=== PATIENT | male | born 1975 | race Two or more races ===

== ENCOUNTER 2024-03-06 18:17 | Inpatient (IN) | payer OTHER ==
[~2024-03-06] VITALS: Ht 177.8 cm; Wt 112.0 kg
[2024-03-06] MEDS ORDERED: SODIUM CHLORIDE 0.9% 100 ML ONE (18:30)
[2024-03-06] MEDS ORDERED: IOHEXOL 350 MG/ML 100 ML VIAL ONE (18:30)
[2024-03-06] MEDS: LABETALOL HCL 5 MG/ML 20 ML VIAL IVP ONE ×3 (18:32→19:33)
[2024-03-06 18:39] LABS: BASOPHILS % (AUTO) 0.5 % (0.0-2.0); EOSINOPHILS % (AUTO) 0.9 % (1.0-6.0); HEMATOCRIT 45.5 % (41-53); HEMOGLOBIN 15.8 g/dL (13.5-17.5); LYMPHOCYTES % (AUTO) 18.9 % (22.0-44.0); MEAN CORPUSCULAR HEMOGLOBIN 29.6 pg (26.0-34.0); MEAN CORPUSCULAR HGB CONC 34.8 G/dL (31.0-37.0); MEAN CORPUSCULAR VOLUME 85 fL (80-100); MONOCYTES % (AUTO) 8.8 % (2.0-9.0); NEUTROPHILS # (AUTO) 7.7 K/uL (1.8-7.7); NEUTROPHILS % (AUTO) 70.9 % (40.0-70.0); PLATELET COUNT (AUTO) 251 K/uL (150-450); RED BLOOD CELL COUNT(AUTO) 5.34 MIL/uL (4.50-5.90); RED CELL DISTRIBUTION WIDTH 13.9 % (11.5-14.5); WHITE BLOOD COUNT (AUTO) 10.9 K/uL (4.5-11.0)
[2024-03-06 18:49] LABS: ANION GAP 11 mmol/L (8-16); CALCIUM, TOTAL 9.7 mg/dL (8.8-10.5); CARBON DIOXIDE 27 mmol/L (22-29); CHLORIDE 102 mmol/L (98-107); GLOMERULAR FILTR. RATE CALC > 60 mL/min (>60); GLUCOSE,RANDOM 133 mg/dL (70-110); POTASSIUM 3.4 mmol/L (3.5-5.1); SODIUM SERUM 140 mmol/L (136-145); UREA NITROGEN, BLOOD 11 mg/dL (7-18)
[2024-03-06] MEDS: ALTEPLASE PER STROKE PROTOCOL CLINICAL ONE (18:53)
[2024-03-06 18:55] LABS: ALANINE AMINOTRANSFERASE 29 U/L (12-78); ALBUMIN 3.8 g/dL (3.4-5.0); ALKALINE PHOSPHATASE 117 U/L (46-116); ASPARTATE AMINOTRANSFERASE 18 U/L (15-37); BILIRUBIN,TOTAL 0.8 mg/dL (0.1-1.0); TOTAL PROTEIN, SERUM 8.2 g/dL (6.4-8.2)
[2024-03-06 18:57] LABS: TROPONIN I-HIGH SENSITIVITY 27 ng/L (<76)
[2024-03-06 19:06] LABS: INR 0.9 (0.9-1.1); PROTHROMBIN TIME 9.9 SEC (9.4-11.6)
[2024-03-06] MEDS: NiCARDipine HCL 25 MG in SODIUM CHLORIDE 0.9% 240 ML IV PRN (19:34)
[2024-03-06] MEDS: ALTEPLASE 9 MG in WATER FOR INJECTION,STERILE 9 ML IV ONE (19:50)
[2024-03-06] MEDS: ALTEPLASE 81 MG in WATER FOR INJECTION,STERILE 81 ML IV ONE (19:51)
[2024-03-06] MEDS ORDERED: ACETAMINOPHEN 325 MG TABLET PO PRN (20:00)
[2024-03-06] MEDS ORDERED: ONDANSETRON HCL 4 MG/2 ML VIAL IVP PRN (20:00)
[2024-03-06 20:16] LABS: COVID AG,FIA SOURCE NASAL SWAB
[2024-03-06 20:20] LABS: APPEARANCE,URINE CLEAR (CLEAR); BILIRUBIN,URINE NEGATIVE (NEGATIVE); COLOR,URINE COLORLESS (YELLOW); GLUCOSE, URINE (UA) NEGATIVE (NEGATIVE); KETONES,URINE NEGATIVE (NEGATIVE); LEUKOCYTE ESTERASE ,URINE NEGATIVE (NEGATIVE); NITRATE,URINE NEGATIVE (NEGATIVE); OCCULT BLOOD,URINE NEGATIVE (NEGATIVE); PH,URINE 6.5 (5.0-8.0); PH,URINE DRUG SCREEN 6.5 (5.0-8.0); PROTEIN,URINE NEGATIVE (NEGATIVE); SPECIFIC GRAVITIY, URINE 1.034 (1.003-1.030); UROBILINOGEN,URINE <=1.0 mg/dL (<=1.0)
[2024-03-06 20:27] LABS: ALCOHOL, URINE DRUG SCREEN POSITIVE (NEGATIVE); AMPHET/METH SCREEN,URINE NEGATIVE (NEGATIVE); BARBITURATE SCREEN, URINE NEGATIVE (NEGATIVE); BENZODIAZEPINES SCREEN,URINE NEGATIVE (NEGATIVE); CANNABINOID SCREEN,URINE NEGATIVE (NEGATIVE); COCAINE SCREEN,URINE NEGATIVE (NEGATIVE); METHADONE SCREEN, URINE NEGATIVE (NEGATIVE); OPIATE SCREEN,URINE NEGATIVE (NEGATIVE); PHENCYCLIDINE SCREEN,URINE NEGATIVE (NEGATIVE)
[2024-03-06 20:37] LABS: SARS-COV2 (COVID) ANTIGEN,FIA Negative (Negative)
[2024-03-06] MEDS: DOCUSATE SODIUM 100 MG CAPSULE PO SCH (21:16)
[2024-03-06] MEDS: CHLORHEXIDINE GLUCONATE 2% TOWELETTE [2'S/6'S] TP SCH (21:22)
[2024-03-07] MEDS ORDERED: HEPARIN SODIUM,PORCINE 5,000 UNITS/ML VIAL SQ SCH
[2024-03-07 06:25] VITALS: O2SAT 96
[2024-03-07] MEDS: PANTOPRAZOLE SODIUM 40 MG/VIAL IVP SCH (08:25)
[2024-03-07 12:00] VITALS: BP 158/90; PULSE 90; RESP 19; TEMP 97.5
[2024-03-07] MEDS: NiCARDipine HCL 25 MG in SODIUM CHLORIDE 0.9% 240 ML IV PRN (12:25)
[2024-03-07 16:00] VITALS: BP 133/74; PULSE 82; RESP 14; TEMP 97.8
[2024-03-07 20:00] VITALS: BP 149/79; PULSE 88; RESP 17; TEMP 98.5
[2024-03-08] VITALS: BP 121/69; PULSE 76; RESP 15; TEMP 98.5
[2024-03-08 04:00] VITALS: BP 127/79; PULSE 75; RESP 13; TEMP 98.4
[2024-03-08 06:06] LABS: LDL CHOLESTEROL DIRECT 110 mg/dL (0-99)
[2024-03-08 06:13] LABS: CHOL/HDL RATIO 4.8 (4.2-7.3)
[2024-03-08] MEDS: ASPIRIN 81 MG CHEWABLE TABLET PO SCH (07:59)
[2024-03-08 08:00] VITALS: BP 154/81; PULSE 83; RESP 14; TEMP 97.9
[2024-03-08] MEDS: AmLODIPine BESYLATE 5 MG TABLET PO SCH (09:49)
[2024-03-08 12:00] VITALS: BP 158/87; PULSE 82; RESP 14; TEMP 98
[2024-03-08] MEDS: ATORVASTATIN CALCIUM 40 MG TABLET PO SCH (13:57)
[2024-03-08 16:00] VITALS: BP 161/99; PULSE 73; RESP 18; TEMP 98.1
[2024-03-08] MEDS: AmLODIPine BESYLATE 5 MG TABLET PO ONE (17:18)
[2024-03-08 20:00] VITALS: BP 184/116; PULSE 88; RESP 15; TEMP 98
[2024-03-08] MEDS: LOSARTAN POTASSIUM 25 MG TABLET PO SCH (20:12)
[2024-03-08] MEDS: CloNIDine HCL 0.1 MG TABLET PO PRN (20:48)
[2024-03-08] MEDS: LOSARTAN POTASSIUM 25 MG TABLET PO ONE (22:18)
[2024-03-09] VITALS: BP 157/94; PULSE 66; RESP 16; TEMP 98.2
[2024-03-09] MEDS: HydrALAZINE HCL 20 MG/ML VIAL IVP PRN (00:47)
[2024-03-09 04:00] VITALS: BP 134/94; PULSE 61; PULSE 67; RESP 16; TEMP 97.7
[2024-03-09 05:30] VITALS: BP 161/102; PULSE 69; RESP 16; TEMP 97.5
[2024-03-09 06:07] LABS: ANION GAP 9 mmol/L (8-16); CALCIUM, TOTAL 9.3 mg/dL (8.8-10.5); CARBON DIOXIDE 26 mmol/L (22-29); CHLORIDE 100 mmol/L (98-107); CREATININE 0.95 mg/dL (0.60-1.30); GLOMERULAR FILTR. RATE CALC > 60 mL/min (>60); GLUCOSE,RANDOM 118 mg/dL (70-110); POTASSIUM 3.6 mmol/L (3.5-5.1); SODIUM SERUM 135 mmol/L (136-145); UREA NITROGEN, BLOOD 12 mg/dL (7-18)
[2024-03-09 06:13] LABS: BASOPHILS % (AUTO) 0.3 % (0.0-2.0); EOSINOPHILS % (AUTO) 3.1 % (1.0-6.0); HEMATOCRIT 44.3 % (41-53); HEMOGLOBIN 15.3 g/dL (13.5-17.5); LYMPHOCYTES # (AUTO) 1.6 K/uL (1.0-4.8); LYMPHOCYTES % (AUTO) 19.6 % (22.0-44.0); MEAN CORPUSCULAR HEMOGLOBIN 29.8 pg (26.0-34.0); MEAN CORPUSCULAR HGB CONC 34.6 G/dL (31.0-37.0); MEAN CORPUSCULAR VOLUME 86 fL (80-100); MONOCYTES # (AUTO) 0.7 K/uL (0.1-1.0); MONOCYTES % (AUTO) 8.9 % (2.0-9.0); NEUTROPHILS # (AUTO) 5.6 K/uL (1.8-7.7); NEUTROPHILS % (AUTO) 68.1 % (40.0-70.0); PLATELET COUNT (AUTO) 239 K/uL (150-450); RED BLOOD CELL COUNT(AUTO) 5.14 MIL/uL (4.50-5.90); RED CELL DISTRIBUTION WIDTH 13.9 % (11.5-14.5); WHITE BLOOD COUNT (AUTO) 8.2 K/uL (4.5-11.0)
[2024-03-09 08:29] VITALS: BP 143/87; PULSE 68; RESP 18; TEMP 97.6
[2024-03-09] MEDS: AmLODIPine BESYLATE 5 MG TABLET PO SCH (08:32)
[2024-03-09] MEDS: LOSARTAN POTASSIUM 50 MG TABLET PO SCH (08:35)
[2024-03-09] MEDS ORDERED: LOSA-382 PO (11:59)
[2024-03-09] MEDS ORDERED: ASPI81TA87 PO (12:00)
[2024-03-09] MEDS ORDERED: AMLO-258 PO (12:00)
[2024-03-09] MEDS ORDERED: ATOR20TA PO (12:01)
[2024-03-09 12:08] VITALS: BP 156/90; PULSE 71; RESP 18; TEMP 97.7
== END 2024-03-09 14:03 | disposition home or self-care (01) | DRG 62 ==
LOC: EMS 18:19 → AHU 23:08 → ICUN 03-07 04:31 → ICU 03-07 09:03 → 5S 03-09 05:31
PROVIDERS: ADMIT Internal Medicine; ATTEND Internal Medicine
DX: I63.81 Other cerebral infarction due to occlusion or stenosis of small artery (principal); I16.1 Hypertensive emergency; E66.9 Obesity, unspecified; Z20.822 Contact with and (suspected) exposure to COVID-19; E87.6 Hypokalemia; F10.10 Alcohol abuse, uncomplicated; I10 Essential (primary) hypertension; Z68.35 Body mass index [BMI] 35.0-35.9, adult
CPT/HCPCS: 70450; 70496; 70498; 70551; 71045; 80048; 80053; 80061; 80307; 81003; 82948; 83721; 84484; 85025; 85610; 85730; 86850; 86900; 86901; 92610; 93005; 93306; 93880; 97162; 97163; 97165; 97530; 97535; 99285; C9113; G0480; J0360; J2997; J3490; J7050; Q9967; 36415-L1; 36415-TC